=== PATIENT | male | born 1950 | race Caucasian/White ===

== ENCOUNTER → 2024-02-11 10:46 | Outpatient (REF) | payer MEDICARE, OTHER, SELFPAY | LOC: RAD 10:46 | PROVIDERS: ATTENDING PHYSICIAN Family Medicine; FAMILY PHYSICIAN Family Medicine | DX: S29.9XXA Unspecified injury of thorax, initial encounter (principal) | CPT/HCPCS: 71101 ==

== ENCOUNTER → 2024-05-21 14:03 | Outpatient (REF) | payer MEDICARE, OTHER, SELFPAY ==
[2024-05-21 14:51] LABS: Urine Albumin Negative (Neg - Trace); Urine Bilirubin Negative (Negative); Urine Character Clear (Clear); Urine Color Yellow; Urine Glucose Negative (Negative); Urine Ketone Negative (Negative); Urine Leukocyte Negative (Negative); Urine Nitrite Negative (Negative); Urine Occult Blood 4+ (Negative); Urine Specific Gravity 1.025 (<1.030); Urine Urobilinogen Negative (Neg - 1+)
[2024-05-21 15:00] LABS: Urine Bacteria Few (Negative); Urine Calcium Oxalate Crystals Present; Urine Red Blood Cell 16-20 /HPF (0-2); Urine White Cell 0-2 /HPF (0-5)
== END ==
LOC: REG 14:03
PROVIDERS: ATTENDING PHYSICIAN Urology; FAMILY PHYSICIAN Family Medicine
DX: N39.0 Urinary tract infection, site not specified (principal)
CPT/HCPCS: 81003; 81015; 87086

== ENCOUNTER 2025-02-05 07:21 | Inpatient (IN) | payer MEDICARE, OTHER, SELFPAY ==
[2025-02-04 22:13] VITALS: BP 124/70
[2025-02-04 23:36] VITALS: BMI 29.4
[2025-02-04 23:57] LABS: Urine Character Clear (Clear)
--- NOTE | 2025-02-04 23:59 | ED.GENMED ---
History of Present Illness
General
Chief Complaint: Skin Problem
Source: patient
Exam Limitations: none
Time Seen by Provider: 02/04/25 23:46
Nursing documentation reviewed up to this point in time: agreed with
History of Present Illness
History of Present Illness:
74-year-old male with a past medical history of prostate cancer status post total prostatectomy, hypertension, hyperlipidemia, who presents to the ER today with concerns of dark-colored urine as well as itching to his back and forearms. Patient
reports that he woke up today and that around 1 PM after lunchtime, he started to notice that his back, arms, and part of his chest felt itchy. He denies any rash to the area. He called his primary care provider who told him to take Benadryl which
did significantly help the symptoms. Patient denies any exposure to new allergens, any recent new medications, any swelling of the lips or tongue, any difficulty swallowing, and difficulty breathing, any new body washes, ointments, any new
detergents use for close. Patient then reported that at around 7 PM, he noticed that his urine was darker in color. This is never happened to patient before. Patient denies any history of fevers, any history of abdominal pain or muscle aches.
Patient reports that he is feeling well. He denies history of kidney disease, he denies any history of nausea or vomiting.
Past History
Past History
ED Past Medical History: CVA, HTN and Hypercholesterolemia
ED Past Surgical History: Other (Hernia repair)
Social History
Tobacco: Non-smoker
Alcohol: None
Drug: None
Living: with family
Employment: Retired
Family History
Family History: Negative Diabetes
Review of Systems
Review of Systems
All Other Systems: ROS reviewed and negative except as documented in HPI and ROS
Phy Exam
Physical Exam
Physical Exam:
General: Patient is well appearing and in no acute distress; non-toxic
Skin: Warm and dry, no rashes or lesions. Small area of scattered linear excoriations noted to the back
Head: Normocephalic, atraumatic
Eyes: Sclera non-icteric. EOMs intact.
Cardiac: Regular rate and rhythm, no murmurs
Peripheral Vascular: No lower extremity swelling or edema
Pulm: Normal respiratory effort, no wheezes, rales, rhonchi
Abdomen: No abdominal tenderness to palpation, abdomen soft
Neuro: CN II-XII intact, no focal neurologic deficits.
Psychiatric: Appropriate mood and affect.
Course
Orders/Labs/Results
Orders:
Orders
02/04/25 23:42
Urine Microscopic Reflex Cult Urgent
Urine Reflex Culture from [facility] [Urinalysis Reflex To Culture] Urgent
Date Specimen was Collected: 02/04/25
Time Specimen was Collected: 23:41
Urine Culture Urgent
ADRIAN Source: U
Specimen Description:
Date Specimen was Collected: 02/04/25
Time Specimen was Collected: 23:41
02/04/25 23:57
CPK [Creatine Phosphokinase] Urgent
Complete Blood Count/With Diff Urgent
Comprehensive Metabolic Panel Urgent
02/04/25 23:59
Famotidine [Pepcid] 20 mg PO NOW STA
02/05/25 00:06
Lipase Urgent
Comment: ADD ON
02/05/25 01:02
US Abdomen Limited Urgent
Comment:
Reason For Exam: elevated total bilirubin, lfts
02/05/25 01:03
0.9% Sodium Chloride 500 ml [Nss] 500 ml IV BOLUS
02/05/25 03:03
Add On- LAB Urgent
Tests Added?: lipase
CT Abd/pelvis W Iv Cont Urgent
Comment:
Reason For Exam: transaminitis, transient nausea
02/05/25 03:04
0.9% Sodium Chloride 500 ml [Nss] 500 ml IV BOLUS
HydrOXYZINE [Atarax] 25 mg PO NOW STA
Abnormal Lab Results
02/04/25 02/05/25
23:42 00:06
RBC 4.27 L 10^6/uL
(4.70-6.10)
Hgb 12.7 L g/dL
(13.0-18.0)
Hct 38.8 L %
(39.0-52.0)
MCHC 32.7 L g/dL
(33.0-37.0)
MPV 11.1 H fL
(7.4-10.4)
Absolute Lymphs (auto) 0.5 L 10^3/uL
(1.2-3.4)
Neutrophils % 80.8 H %
(42.2-75.2)
Lymphocytes % 8.6 L %
(20.5-51.1)
BUN 26 H mg/dl
(9-20)
Creatinine 1.4 H mg/dL
(0.7-1.3)
Glucose 120 H mg/dl
(70-99)
Total Bilirubin 3.9 H mg/dl
(0.2-1.3)
AST 464 H U/L
(17-59)
ALT 790 H* U/L
(0-50)
Alkaline Phosphatase 223 H U/L
(38-126)
Creatine Kinase 320 H U/L
(55-170)
Urine Urobilinogen 3+ A
(Neg - 1+)
Leukocyte Esterase Rfl 1+ A
(Negative)
Urine Bacteria (Reflex) Few A
(Negative)
Urine Albumin (Reflex) 2+ A
(Neg - Trace)
02/05/25 00:06
02/05/25 00:06
Vital Signs
Initial and Last Documented VS:
Initial Vital Signs
Temp Pulse Resp BP Pulse Ox
98.7 F 96 20 124/70 96
02/04/25 22:13 02/04/25 22:13 02/04/25 22:13 02/04/25 22:13 02/04/25 22:13
Last Documented Vital Signs
Temp Pulse Resp BP Pulse Ox
98.7 F 94 20 123/86 98
02/04/25 22:13 02/05/25 06:00 02/05/25 06:00 02/05/25 06:00 02/05/25 06:00
MDM/Problems Addressed
Differential Diagnosis Includes:
ddx include dehydration, urinary tract infection, allergic reaction, hematuria, hemolysis, rhabdomyolysis, biliary disease
MDM/Problems Addressed:
74-year-old male with a past medical history of prostate cancer status post total prostatectomy, hypertension, hyperlipidemia, who presents to the ER today with concerns of dark-colored urine as well as itching to his back and forearms. Patient
reports that he woke up today and that around 1 PM after lunchtime, he started to notice that his back, arms, and part of his chest felt itchy. The tea-colored urine started this evening. Labs reviewed, patient mildly anemic at baseline. Elevated
BUN to creatinine ratio noted with ETHAN, patient given IV fluids. Total bilirubin elevated at 3.4, no history of this prior. Patient also noted to have transaminitis with AST of 464 and ALT of 790. His alk phos was also elevated. Urinalysis
reviewed, 3+ urobilinogen noted. His lipase is normal.
Patient was sent for ultrasound which showed no intra-abdominal pathology no signs of biliary obstruction. We then sent patient for CAT scan which showed also no acute findings. Patient will require admission for further workup and GI consult.
Case reviewed with ED attending.
Chronic conditions affecting care:
HTN, prostate cancer in remission
*Pulse Oximetry
SaO2: 96
Patient hypoxic: no
*Critical Care Note
Total Time (30-74mins, 75-104mins- exclusive of procedures): Not Applicable
Data Reviewed
Review of Other/Old Records Reveals: Records (P patient had prostate removed in 10/12/2021) and Discharge Summary (Reviewed discharge summary from 02/13/2020 patient seen for pyelonephritis with bacteremia)
Source: patient and records
ED Attending Note
-
Portions of this chart may have been created with voice recognition software.� Occasional wrong word or��sound alike� substitutions may have occurred due to the inherent limitations of voice recognition software.
Discharge Plan
Departure
Patient Disposition: Admit
Date of Disposition: 02/05/25
Time of Disposition: 05:47
Admit to: Med/Surg
Presentation/result/management discussed w/ accepting MD/DO: Hospitalist
Patient with high blood pressure during this ER visit?: No
Condition: Good
Discharge Problem:
Abnormal transaminases, Cholestatic pruritus
Prescriptions:
No Action
fluticasone propionate 1 SPRAY spray,suspension
2 spray intranasal DAILY
bupropion HCl 300 MG tablet extended release 24 hr
300 mg PO DAILY
magnesium oxide 500 MG capsule
500 mg PO DAILY
riboflavin (vitamin B2) [Vitamin B-2] 100 MG tablet
100 mg PO DAILY
lisinopril 5 MG tablet
5 mg PO DAILY
loratadine 10 MG tablet
10 mg PO DAILY
multivitamin with folic acid [Tab-A-Mark Anthony] 1 TABLET tablet
1 tab PO DAILY
aspirin 81 MG tablet,delayed release (DR/EC)
81 mg PO QPM
calcium carbonate 600 MG tablet
600 mg PO DAILY
ascorbic acid (vitamin C) [Vitamin C] 500 MG tablet
500 mg PO DAILY
polyethylene glycol 3350 17 GRAMS powder in packet
17 grams PO DAILY@1200
cyanocobalamin (vitamin B-12) 1,000 MCG tablet
1,000 mcg PO DAILY@1200
tamsulosin 0.4 MG capsule
0.4 mg PO DAILY
imipramine HCl 25 MG tablet
75 mg PO QPM
atorvastatin 40 MG tablet
40 mg PO QPM
sucralfate 1 GRAM tablet
1 g PO ACHS
famotidine [Pepcid] 40 MG tablet
40 mg PO DAILY
amlodipine 5 MG tablet
5 mg PO DAILY
acetaminophen 325 MG tablet
650 mg PO Q4HPRN PRN (Reason: mild pain) 0RF
oxycodone-acetaminophen 5 MG/325 MG tablet
1 tab PO Q4HPRN PRN (Reason: severe pain) Qty: 5 0RF
ferrous sulfate [FeroSul] 325 MG tablet
325 mg PO HS
Referrals:
Chris Weston DC [Family Provider, Physical Medicine / Rehab]
Interventions
Interventions:
*Risk Screen - Suicide Last Done: 02/04/25 22:13
*General Assessment Last Done: 02/04/25 23:36
*Neglect/Abuse Screening Last Done: 02/04/25 22:13
*ED- Fall Risk Assessment Last Done: 02/04/25 23:36
*ED COVID-19 Vaccine History Last Done: 02/04/25 23:36
ED-Male Genitourinary Assessment Last Done: 02/04/25 23:36
ED-Skin Assessment Last Done: 02/04/25 23:36
Discharge Date and Time
Print Language: SUDANESE
[2025-02-05] MEDS: PEPCID 20 MG PO (00:09)
[2025-02-05 00:14] LABS: Urine Red Blood Cell None Seen /HPF (0-2)
[2025-02-05 00:44] LABS: AST (SGOT) 464 U/L (17-59); Albumin 4.0 g/dl (3.5-5.0); Alkaline Phosphatase 223 U/L (38-126); Blood Urea Nitrogen 26 mg/dl (9-20); Calcium 9.1 mg/dl (8.4-10.2); Carbon Dioxide 28 mmol/L (22-30); Chloride 105 mmol/L (98-107); Estimated Creatinine Clearance 46 ml/min; Glucose 120 mg/dl (70-99); Potassium 3.8 mmol/L (3.5-5.1); Sodium 141 mmol/L (135-145); Total Protein 6.7 g/dl (6.3-8.2); eGFR 52.09
[2025-02-05 01:01] LABS: ALT (SGPT) 790 U/L (0-50)
[2025-02-05] MEDS: NSS 500 IV ×2 (01:11→03:29)
[2025-02-05 01:13] VITALS: BP 113/75
[2025-02-05 01:54] LABS: Hematocrit 38.8 % (39.0-52.0); Hemoglobin 12.7 g/dL (13.0-18.0); Mean Corp Hgb Conc. 32.7 g/dL (33.0-37.0); Mean Corpuscular Volume 90.9 fL (80.0-94.0); Nucleated Red Blood Cells % 0 % (-); Platelet Count 142 10^3/uL (130-400); Red Cell Dist. Width 13.7 % (11.5-14.5)
[2025-02-05] MEDS: ATARAX 25 MG PO (03:28)
[2025-02-05 03:35] LABS: Lipase 75 U/L (23-300)
[2025-02-05 06:00] VITALS: BP 123/86
--- NOTE | 2025-02-05 06:53 | HPS.HSE ---
Family Physician
-
Family Physician: Chris Weston DC
Chief Complaint
-
Itching, Dark Urine
History of Present Illness
Patient is a 74y M with PMH significant for hypertension, anxiety / depression and prostate cancer s/p treatment who presents to ED complaining of itching and dark urine. Patient states that his symptoms began yesterday around midday. He had
mild itching of the trunk that progressed throughout the day to become much more intense. Arms / legs / face are spared. He appreciates no skin lesions or rash. Patient denies any recent outdoor exposures, new medications, unusual food
ingestions, etc. No recent travel.
Patient also appreciated that his urine appeared very dark yesterday - though that has started to clear. No dysuria or flank pain.
No abdominal pain, N/V/D or other focal complaints.
Patient denies any prior h/o similar symptoms.
Medical History
Past Medical History
Past Medical History: Reports Other
Additional Past Medical History:
Hypertension
Anxiety / Depression
Prostate Cancer
Multiple Prior TIAs
Past Surgical History: Reports Other
Additional Past Surgical History:
Prostatectomy
T&A
Bilateral Inguinal Herniorrhaphies
Social History
Tobacco: Non-smoker
Alcohol: None
Drug: None
Family History
Family History: Not pertinent
Allergies / Home Medications
Allergies reflects when Allergies were last updated in [employer].
Home Medications with original date entered in [employer]
Allergy/Medication List:
Allergies
Allergy/AdvReac Type Severity Reaction Status Date / Time
No Known Drug Allergies Allergy N/A Verified 02/04/25 22:17
Home Medications
bupropion HCl 300 mg 24 hr tablet, extended release 300 mg PO DAILY Mental Health/Anxiety 09/04/17
fluticasone propionate 50 mcg/actuation nasal spray,suspension 2 spray intranasal DAILY Lung/breathing issues 09/04/17
magnesium oxide 500 mg capsule 500 mg PO DAILY Supplement 09/05/17
lisinopril 5 mg tablet 5 mg PO DAILY Blood pressure 09/08/17
loratadine 10 mg tablet 10 mg PO DAILY Allergies 09/08/17
multivitamin with folic acid 400 mcg tablet (Tab-A-Mark Anthony) 1 tab PO DAILY Supplement 09/08/17
ascorbic acid (vitamin C) 500 mg tablet (Vitamin C) 500 mg PO DAILY Supplement 02/10/20
aspirin 81 mg tablet,delayed release 81 mg PO QPM Blood clot prevention/tx 02/10/20
calcium carbonate 600 mg PO DAILY Supplement 02/10/20
cyanocobalamin (vitamin B-12) 1,000 mcg tablet 1,000 mcg PO DAILY@1200 Supplement 09/10/20
imipramine HCl 25 mg tablet 75 mg PO QPM Sleep 09/10/20
atorvastatin 40 mg tablet 40 mg PO QPM High cholesterol 09/22/21
amlodipine 5 mg tablet 5 mg PO DAILY Blood pressure 10/08/21
escitalopram oxalate 5 mg tablet 5 mg PO DAILY 02/05/25
trospium 20 mg tablet 20 mg PO QPM 02/05/25
Review of Systems
-
History Source: Patient
A 12 point ROS was completed and negative except as noted: Yes
Constitutional: Denies Fever or Chills
Respiratory: Denies Cough or Trouble Breathing
Cardiac: Denies Chest Pain or Palpitations
Abdomen/GI: Denies Abdominal Pain, Nausea, Vomiting or Diarrhea
: Reports Dark Urine; Denies Dysuria, Frequency or Flank Pain
Musculoskeletal: Denies Joint Pain or Edema
Skin: Reports Itching; Denies Rash
Neurological: Denies Dizzy or Headache
Psych: Denies Depression or Anxiety
Physical Exam
Vital Signs
Vital Signs
Temp Pulse Resp BP Pulse Ox
98.7 F 94 20 123/86 98
02/04/25 22:13 02/05/25 06:00 02/05/25 06:00 02/05/25 06:00 02/05/25 06:00
Physical Exam
General: Other (74y M in no acute distress.)
HEENT: Moist mucous membranes and PERRLA
Respiratory: Clear; No Wheezes, Rales or Rhonchi
Cardiac: S1/S2 and Regular Rhythm; No Murmur
GI: Soft, Non Tender, Non Distended and Normal Bowel Sounds
Musculoskeletal: No Clubbing, No Cyanosis and No Edema
Skin: No Rash, Jaundice or Lesions
Neuro: AO x 3
Laboratory Results
-
02/05/25 00:06
02/05/25 00:06
Laboratory Results
Total Bilirubin 3.9 mg/dl (0.2-1.3) H 02/05/25 00:06
AST 464 U/L (17-59) H 02/05/25 00:06
ALT 790 U/L (0-50) H* 02/05/25 00:06
Alkaline Phosphatase 223 U/L (38-126) H 02/05/25 00:06
Lipase 75 U/L (23-300) 02/05/25 00:06
Impression/Plan
-
A/P: Patient is a 74y M with PMH significant for hypertension and prostate cancer s/p treatment who presents to ED complaining of itching and dark urine.
Hyperbilirubinemia / Abnormal LFTs
Pruritis
Bilirubinuria
- Admit for further evaluation and treatment.
- No clear etiology for symptoms / changes.
- Patient had outpatient labs (in external med summary) on 02/03 which were completely normal.
- Now mild anemia and abnormal LFTs.
- CT and US done in the ED were unremarkable.
- Check serologies for hepatitis, etc.
- GI evaluation for additional recommendations.
ETHAN
- SCr = 1.4 compared to recent outpatient value of 1.08.
- IVFs for now.
- Hold lisinopril acutely.
- Follow for improvement.
Mild Normocytic Anemia
- Hgb = 12.7 compared to 14.9 two days ago.
- Check for antibodies and follow for any evident bleeding or changes in H&H.
Benign Hypertension
- Stable. Continue amlodipine with holding parameters.
Anxiety / Depression
- Stable. Continue current psychotropic med regimen.
History of Prostate Cancer
DVT Prophylaxis: SCDs
Code Status: Full
[2025-02-05 07:04] VITALS: BP 138/96
[2025-02-05] MEDS: BENADRYL 25 MG PO (07:18)
[2025-02-05 08:32] VITALS: BP 140/82
[2025-02-05 08:33] VITALS: BMI 29.0
[2025-02-05] MEDS: WELLBUTRIN XL (24 hour extended release) 300 MG PO (08:52)
[2025-02-05] MEDS: LEXAPRO 5 MG PO (08:53)
[2025-02-05] MEDS: NORVASC 5 MG PO (08:53)
[2025-02-05] MEDS: NSS 1000 IV ×2 (08:53→20:10)
--- NOTE | 2025-02-05 09:33 | CON.GI ---
Addendum entered and electronically signed by CHARY Penn 02/05/25 17:28:
MRI abdomen
1. Diffuse periportal signal abnormality throughout the liver and diffuse heterogeneous enhancement throughout the liver on the arterial phase of imaging without evidence for abnormal biliary dilatation. Diagnostic possibilities are (1) PRIMARY
BILIARY CHOLANGITIS (most likely), (2) infectious cholangitis, or (3) sclerosing cholangitis.
2. Mild kelli hepatis and portacaval lymphadenopathy.
3. Severe gallbladder distention.
4. Moderate diffuse pancreatic parenchymal atrophy.
5. 5.3 mm pancreatic cyst.
6. Mild chronic bilateral renal disease.
7. Large amount of fecal material in the proximal colon.
8. Moderate multilevel lumbar discogenic degenerative disease.
reviewed MRI with patient and family will review with Dr. Gómez if any role for EUS
may need hepatology OP eval
Addendum entered and electronically signed by Sharita Gonsalez DO 02/05/25 10:27:
The patient was seen and examined by me independently in collaboration with the nurse practitioner.
Past medical history/social history/medications/allergies/family history reviewed.
Lab data and imaging data reviewed.
Vu Schneider is a 74 y.o. male with pmhx HTN, HLD, anxiety/depression, prostate ca who presents with 1 day of pruritis and dark urine found to have elevated liver enzymes and acute kidney injury. Preliminary reads on abdominal US and CT scan were
unremarkable, final reads pending. He reports 3 episodes of loose dark brown stool about 3 days ago with associated lower abdominal pain, which has since resolved, otherwise, he denies any GI symptoms, fever/chills. Reports similar episode about 3
months ago. He assumed he had norovirus, but was never evaluated for his symptoms. He denies new medications/dose changes in current medications, recent antibitoics, travel, sick contacts, rashes, history of liver disease/issues or family history of
liver disease. Denies excessive use of NSAIDs or tylenol. No etoh use. [place] known [place] He reports the itching has improved and almost resolved. Normal labs on 02/03.
Labs: Hgb 12.7, MCV 90.0, Plt 142, BUN 26, Cr. 1.4, Tbili 3.9, AST 464, ALT 790, Alk phos 223, CK 320, total protein 6.7, Albumin 4.0, Lipase 75
Labs 10/09/21: Hgb 12.7, MCV 91.2, Plt 167
#Acute Hepatocellular Injury--DDx infectious vs. autoimmune vs. DILI (no obvious culprits) vs. obstructive biliary pathology vs. infiltrative
-R factor 10.6
-Preliminary reads on CT/Abdominal US, moderate stool burden noted; need to verify if dopplers ordered on US to assess vasculature
-hepatitis panel pending, check CMV, EBV, peripheral smear
-f/u Dbili
-check acetaminophen levels, salicylate levels, UDS, ASMA, AMA, A1AT, ceruloplasmin, immunoglobulins, coags
-MRI/MRCP
-no evidence of fulminant liver failure
-trend LFTs
#thrombocytopenia
-Mild thrombocytopenia, platelets 142; upon review of labs, low normal in 2021 with plt of 167
-will continue to monitor for signs of DIC or liver failure, none at the moment, this could be baseline/normal for him
-workup as above
Original Note:
Consultation
-
Date/Time Consultation Requested: 02/05/25654
Date/Time Consultation Performed: 02/05/25929
Requesting Provider: Zackary Arroyo DO
Performing Provider: CHARY Méndez, Jeannine Gonsalez DO
Reason for Consultation: jaundice
Medical History
Chief Complaint / HPI
Chief Complaint: itchiness
History of Present Illness:
Pt is a 74yo with hx prostate CA with prior prostatectomy, colon polyps, TIA, HTN, hyperlipidemia, depression, insomnia with prior GI eval for dyspepsia and constipation several years ago with stable EGD and colonoscopy in past. He now presents
with onset of itchiness since day prior to admission. In review with patient he was noted with 2 episodes of abdominal pain with loose stools about 3 months ago then 2 weeks ago. On admission he is noted with dark urine with bili 3.9, AST 464, ALT
790, alk phos 223 with CK 320, creat 1.4, hbg 12.7 with normal WBC, platelets and albumin.
In review with patient he denies any new medication, change in medication, recent antibiotics, travel, tick bites, rashes, or personal or family history of liver problems in past. No NSAID or anticoagulation use. He otherwise denies wt loss,
decreased appetite, dysphagia, GERD, nausea, vomiting, constipation, or rectal bleeding.
ER preliminary:
02/05 CT A/p IV contrast no acute pathology, no biliary obstruction or pancreatitis, no gallstones, gallbladder is distended without inflammation normal liver
02/05 US abdomen no acute findings, no stones, sludge, no duct dilatation, no GBWT or pericholecystitis fluid
Past Medical History
Past Medical History: Cancer (prostate CA with prior treatment ), CVA (TIAs), HTN, Hypercholesterolemia, Psychiatric (anxiety/depression) and Other (insomnia, colon polyps, )
Past Surgical History: Tonsilectomy and Other (prostectomy, inguinal hernia repair left side 2018 and right side 1993)
Social History
Tobacco: Non-Smoker
Alcohol: None
Drug: None
Personal:
Living: With Family
Employment: Retired
Family History
Family History: Other (son with crohns no family hx liver problems or cirrhosis )
Allergies / Home Medications
Allergy/AdvReac Type Severity Reaction Status Date / Time
No Known Drug Allergies Allergy N/A Verified 02/04/25 22:17
�Medication �Instructions �Recorded
bupropion HCl 300 mg 24 hr tablet, 300 mg PO DAILY Mental 09/04/17
extended release Health/Anxiety
fluticasone propionate 50 2 spray intranasal DAILY 09/04/17
mcg/actuation nasal Lung/breathing issues
spray,suspension
magnesium oxide 500 mg capsule 500 mg PO DAILY Supplement 09/05/17
lisinopril 5 mg tablet 5 mg PO DAILY Blood pressure 09/08/17
loratadine 10 mg tablet 10 mg PO DAILY Allergies 09/08/17
multivitamin with folic acid 400 1 tab PO DAILY Supplement 09/08/17
mcg tablet (Tab-A-Mark Anthony)
ascorbic acid (vitamin C) 500 mg 500 mg PO DAILY Supplement 02/10/20
tablet (Vitamin C)
aspirin 81 mg tablet,delayed 81 mg PO QPM Blood clot 02/10/20
release prevention/tx
calcium carbonate 600 mg PO DAILY Supplement 02/10/20
cyanocobalamin (vitamin B-12) 1,000 mcg PO DAILY@1200 Supplement 09/10/20
1,000 mcg tablet
imipramine HCl 25 mg tablet 75 mg PO QPM Sleep 09/10/20
atorvastatin 40 mg tablet 40 mg PO QPM High cholesterol 09/22/21
amlodipine 5 mg tablet 5 mg PO DAILY Blood pressure 10/08/21
escitalopram oxalate 5 mg tablet 5 mg PO DAILY 02/05/25
trospium 20 mg tablet 20 mg PO QPM 02/05/25
Review of Systems
-
History Source: Patient
Constitutional: Reports No Symptoms
EENT: Reports No Symptoms
Respiratory: Reports No Symptoms
Abdomen/GI: Reports Abdominal Pain (2 episode 3 months ago and 2 weeks ago ) and Diarrhea
: Reports Dark Urine
Musculoskeletal: Reports No Symptoms
Skin: Reports No Symptoms
Neurological: Reports No Symptoms
Endocrine: Reports No Symptoms
Hematologic/Lymphatic: Reports No Symptoms
Vital Signs
Temp Pulse Resp BP Pulse Ox
98.6 F 95 20 140/82 95
02/05/25 08:32 02/05/25 08:53 02/05/25 08:32 02/05/25 08:53 02/05/25 08:32
Physical Exam
Exam
General: Well Developed, Well Nourished and No Apparent Distress
HEENT: Other (jaundice)
Respiratory: Clear
Cardiac: Regular Rhythm
GI: Soft, Non Tender and Non Distended
Musculoskeletal: No Clubbing and No Cyanosis
Skin: Warm and Dry
Neuro: Awake, Alert and AO x 3
Psych: Calm
Results
WBC 5.9 10^3/uL (4.8-10.8) 02/05/25 00:06
Hgb 12.7 g/dL (13.0-18.0) L 02/05/25 00:06
Hct 38.8 % (39.0-52.0) L 02/05/25 00:06
MCV 90.9 fL (80.0-94.0) 02/05/25 00:06
Plt Count 142 10^3/uL (130-400) 02/05/25 00:06
Absolute Neuts (auto) 4.8 10^3/uL (1.4-6.5) 02/05/25 00:06
Sodium 141 mmol/L (135-145) 02/05/25 00:06
Potassium 3.8 mmol/L (3.5-5.1) 02/05/25 00:06
Chloride 105 mmol/L (98-107) 02/05/25 00:06
Carbon Dioxide 28 mmol/L (22-30) 02/05/25 00:06
BUN 26 mg/dl (9-20) H 02/05/25 00:06
Creatinine 1.4 mg/dL (0.7-1.3) H 02/05/25 00:06
Calcium 9.1 mg/dl (8.4-10.2) 02/05/25 00:06
Total Bilirubin 3.9 mg/dl (0.2-1.3) H 02/05/25 00:06
AST 464 U/L (17-59) H 02/05/25 00:06
ALT 790 U/L (0-50) H* 09/09/25 00:06
Alkaline Phosphatase 223 U/L (38-126) H 02/05/25 00:06
Lipase 75 U/L (23-300) 02/05/25 00:06
Diagnostic Image Results:
ER preliminary:
02/05 CT A/p IV contrast no acute pathology, no biliary obstruction or pancreatitis, no gallstones, gallbladder is distended without inflammation normal liver
02/05 US abdomen no acute findings, no stones, sludge, no duct dilatation, no GBWT or pericholecystitis fluid
Prior GI Procedures:
EGD: 12/2020 mark - - Normal esophagus. Biopsied.
- Z-line irregular, 40 cm from the incisors. This was
biopsied for evaluation to rule out Montes's
Esophagus.
- Mild antral gastritis. Biopsies were taken for
Helicobacter pylori testing.
- Moderate gastritis of body. Biopsied.
- Bilious gastric fluid. Fluid aspiration performed.
- Normal examined duodenum. Biopsies for histology
were taken for evaluation of celiac disease.
bx neg H pylori, neg metaplasia
Colonoscopy: 12/2020- mark 4 mm polyp rectum normal colon mucosa bx TA, random bx neg colitis
Assessment / Plan
-
Pt is a 74yo with hx prostate CA with prior prostatectomy, colon polyps, TIA, HTN, hyperlipidemia, depression, insomnia with prior GI eval for dyspepsia and constipation several years ago with stable EGD and colonoscopy in past. He now presents
with onset of itchiness since day prior to admission. In review with patient he was noted with 2 episodes of abdominal pain with loose stools about 3 months ago then 2 weeks ago. On admission he is noted with dark urine with bili 3.9, AST 464, ALT
790, alk phos 223 with CK 320, creat 1.4, hbg 12.7 with normal WBC, platelets and albumin. In review with patient he denies any new medication, change in medication, recent antibiotics, travel, tick bites, rashes, or personal or family history of
liver problems in past. No NSAID or anticoagulation use. He otherwise denies wt loss, decreased appetite, dysphagia, GERD, nausea, vomiting, constipation, or rectal bleeding. Denies ETOH use. No excessive Tylenol use.
ER preliminary:
02/05 CT A/p IV contrast no acute pathology, no biliary obstruction or pancreatitis, no gallstones, gallbladder is distended without inflammation normal liver
02/05 US abdomen no acute findings, no stones, sludge, no duct dilatation, no GBWT or pericholecystitis fluid
-pruritus
- elevated LFT's
-recent GI illness with abdominal pain and diarrhea 3 months ago then 2 weeks ago
-mild elevated CK
other med problems:
-prostate CA with prior prostatectomy
-colon polyps
-TIA
-HTN
-hyperlipidemia
-depression
-insomnia
PLAN:
Etiology of symptoms related to biliary etiology, passed stone, viral, hepatitis, tic illness vs other
plan for MRI to eval for underlying CBD stone, mass vs other
hepatitis panel pending
add D bili
will add INR, CLARENCE, AMA, ASMA, ceruloplasmin, iron studies, AIAT , CVM, and EBV, Babesia smear
trend labs
hold statin
avoid hepatotoxic medication
reviewed with Dr. Bang
-
-
Thank you for consultation and allowing me to participate in the patient's care. Please call the manager functional GI physician during the after hours with any questions or concerns.
--- NOTE | 2025-02-05 10:25 | W.PN.UPDATE ---
Update Note
Progress Note Update
Patient admitted 6 AM today
at present, no abd pain, no nausea/vomiting
itching slowly improving per patient
GI evaluated; labs and MRI ordered
Assessment:
Hyperbilirubinemia/Abnormal LFTs
Pruritis
Bilirubinuria
- No clear etiology for symptoms/changes.
- Patient had outpatient labs (in external med summary) on 02/03 which were completely normal.
- Now mild anemia and abnormal LFTs.
- CT and US done in the ED were unremarkable; final reports pending
- MRI/MRCP pending
- Check serologies for hepatitis, etc. also other GI workup
- GI following
- avoid hepatotoxins
ETHAN
- SCr = 1.4 compared to recent outpatient value of 1.08.
- IVFs for now.
- Hold lisinopril acutely.
- Follow for improvement.
Mild Normocytic Anemia
- Hgb = 12.7 compared to 14.9 two days ago.
- Check for antibodies and follow for any evident bleeding or changes in H&H.
Benign Hypertension
- Stable. Continue amlodipine with holding parameters.
Anxiety/Depression
- Stable. Continue current psychotropic med regimen.
Hx of TIA
- statin/ASA
History of Prostate Cancer
DVT Prophylaxis: SCDs
Code Status: Full
--- NOTE | 2025-02-05 10:40 | CM ---
patient seen at bedside with
IA completed
Lives in 2 story home, 2 JOI, flight to bed/bath, powder room 1st floor
PLOF: independent, drives
DME: stefani Edgar
has had [facility] in past, denies Rehab
PCP: Milton Weston
Pharmacy: [facility]
Plan: home, no needs when stable
[2025-02-05 11:02] LABS: INR 1.04; PT 13.9 Sec (11.4-14.6)
[2025-02-05 13:10] LABS: Acetaminophen < 10 ug/ml (10-30); GGTP 594 U/L (15-73); Iron 48 ug/dl (49-181); Salicylate < 1.0 mg/dl (2.0-20.0)
[2025-02-05 13:19] LABS: Total Iron Binding Capacity 284 ug/dl (261-462)
[2025-02-05 15:10] LABS: Ferritin 115.0 ng/ml (17.9-464.0)
[2025-02-05 15:33] VITALS: BP 135/88
[2025-02-05 16:36] LABS: Hepatitis B Surface Antigen Negative (Negative)
[2025-02-05 16:53] LABS: Hepatitis C Antibody Negative (Negative)
[2025-02-05] MEDS: ASPIR LOW (ENTERIC COATED) 81 MG PO (17:19)
[2025-02-05 23:15] VITALS: BP 125/83
[2025-02-06 06:37] VITALS: BMI 28.6
[2025-02-06] MEDS: NSS 1000 IV (07:22)
[2025-02-06 07:30] VITALS: BP 138/88
[2025-02-06 07:58] LABS: INR 0.96; PT 13.3 Sec (11.4-14.6)
[2025-02-06] MEDS: LEXAPRO 5 MG PO (08:15)
[2025-02-06] MEDS: NORVASC 5 MG PO (08:16)
[2025-02-06] MEDS: WELLBUTRIN XL (24 hour extended release) 300 MG PO (08:16)
[2025-02-06 08:17] LABS: Hematocrit 37.5 % (39.0-52.0); Hemoglobin 13.0 g/dL (13.0-18.0); Mean Corp Hgb Conc. 34.7 g/dL (33.0-37.0); Mean Corpuscular Volume 88.2 fL (80.0-94.0); Platelet Count 147 10^3/uL (130-400); Red Cell Dist. Width 13.4 % (11.5-14.5)
--- NOTE | 2025-02-06 08:42 | W.PN.GI.CBS2 ---
Addendum entered and electronically signed by CHARY Penn 02/06/25 10:55:
sent text to [facility] liaison zay Garcia to see if any sooner appt with Dr. Quiroz for OP follow up
Addendum entered and electronically signed by CHARY Penn 02/06/25 09:45:
per Dr. Gómez will need MRI in 6 months and 2 years after to follow up on pancreatic cyst
Original Note:
Today's Communication / Plan
-
Etiology of symptoms related to biliary etiology possible PBC, PSC, passed stone, viral, hepatitis, tic illness vs other
imaging reviewed as above
I did review MRI with Dr. Gómez no role for EUS/ERCP but further review for panc cyst
await further liver serologies
await repeat LFT's-- hepatitis panel neg, GGT 594
parasite smear neg
hold statin
avoid hepatotoxic medication
cont low fat diet
overall awaiting AM labs, liver serology but may need OP hepatology follow up and eventual liver biopsy
pending labs will decide on GI standpoint and ability for discharge
work up for ? ureter mass per hospitalist team
Assessment / Plan
-
Pt is a 74yo with hx prostate CA with prior prostatectomy, colon polyps, TIA, HTN, hyperlipidemia, depression, insomnia with prior GI eval for dyspepsia and constipation several years ago with stable EGD and colonoscopy in past. He now presents
with onset of itchiness since day prior to admission. In review with patient he was noted with 2 episodes of abdominal pain with loose stools about 3 months ago then 2 weeks ago. On admission he is noted with dark urine with bili 3.9, AST 464, ALT
790, alk phos 223 with CK 320, creat 1.4, hbg 12.7 with normal WBC, platelets and albumin. In review with patient he denies any new medication, change in medication, recent antibiotics, travel, tick bites, rashes, or personal or family history of
liver problems in past. No NSAID or anticoagulation use. He otherwise denies wt loss, decreased appetite, dysphagia, GERD, nausea, vomiting, constipation, or rectal bleeding. Denies ETOH use. No excessive Tylenol use.
ER preliminary:
02/05 CT A/p IV contrast
Mild diffuse bladder wall thickening likely due to limited distention. Cystitis and bladder outlet obstruction not excluded.
Probable filling defect in the right ureter suggesting a mass. Peristalsis not completely excluded. Further evaluation recommended such as a retrograde pyelogram or ureteroscopy.
Large amount of fecal matter throughout the colon.
Bilateral too small to characterize hypodense renal lesions likely benign cysts.
02/05 US abdomen
The gallbladder appears normal. The wall measures 3 mm. No stones nor sludge are noted.
The common bile duct measures 4 mm.
There is no hydronephrosis of the right kidney.
02/05/25 MR Abdomen W/o & W Contrast
1. Diffuse periportal signal abnormality throughout the liver and diffuse heterogeneous enhancement throughout the liver on the arterial phase of imaging without evidence for abnormal biliary dilatation. Diagnostic possibilities are (1) PRIMARY
BILIARY CHOLANGITIS (most likely), (2) infectious cholangitis, or (3) sclerosing cholangitis.
2. Mild kelli hepatis and portacaval lymphadenopathy.
3. Severe gallbladder distention.
4. Moderate diffuse pancreatic parenchymal atrophy.
5. 5.3 mm pancreatic cyst.
6. Mild chronic bilateral renal disease.
7. Large amount of fecal material in the proximal colon.
8. Moderate multilevel lumbar discogenic degenerative disease.
-pruritus
- elevated LFT's with elevated D bili
-elevated GGT
-GB distention no pain or fever
- abnormal MRI with lymphadenopathy, GB distention without fever/pain, jansen atrophy panc cyst 5.3 mm and periportal signal abnormality
-recent GI illness with abdominal pain and diarrhea 3 months ago then 2 weeks ago
-mild elevated CK
-constipation-longstanding hx dyspepsia
-CT with abnormal ureter not seen on MRI
other med problems:
-prostate CA with prior prostatectomy
-colon polyps
-TIA
-HTN
-hyperlipidemia
-depression
-insomnia
PLAN:
Etiology of symptoms related to biliary etiology possible PBC, PSC, passed stone, viral, hepatitis, tic illness vs other
imaging reviewed as above
I did review MRI with Dr. Gómez no role for EUS/ERCP but further review for panc cyst
await further liver serologies
await repeat LFT's-- hepatitis panel neg, GGT 594
parasite smear neg
hold statin
avoid hepatotoxic medication
cont low fat diet
overall awaiting AM labs, liver serology but may need OP hepatology follow up and eventual liver biopsy
pending labs will decide on GI standpoint and ability for discharge
work up for ? ureter mass per hospitalist team
Subjective
Subjective
Date of Service: February 06, 2025
pt feeling better no abdominal pain, tolerated diet, no further itching
Objective
Data Reviewed
Laboratory Data:
Laboratory Results
02/06/25 06:59
Laboratory Results
PT 13.3 Sec (11.4-14.6) 02/06/25 06:59
INR 0.96 02/06/25 06:59
Total Bilirubin 3.9 mg/dl (0.2-1.3) H 02/05/25 00:06
AST 464 U/L (17-59) H 02/05/25 00:06
ALT 790 U/L (0-50) H* 02/05/25 00:06
Alkaline Phosphatase 223 U/L (38-126) H 02/05/25 00:06
Lipase 75 U/L (23-300) 02/05/25 00:06
Vital Signs and I&O:
Vital Signs
Temp Pulse Resp BP Pulse Ox
98.2 F 98 16 138/88 96
02/06/25 07:30 02/06/25 08:16 02/06/25 07:30 02/06/25 08:16 02/06/25 07:30
I&O
02/05/25 02/06/25 02/07/25
06:59 06:59 06:59
Intake Total 1679
Balance 1679
Physical Exam
Physical Exam
HEENT: Other (minimal jaundice )
Cardiology: Normal Sinus Rhythm
Pulmonary: Clear
GI: Soft, Non Distended and Non Tender
Extremities: No Edema
Neuro: Non Focal
[2025-02-06 08:54] LABS: ALT (SGPT) 489 U/L (0-50); AST (SGOT) 189 U/L (17-59); Albumin 3.9 g/dl (3.5-5.0); Alkaline Phosphatase 251 U/L (38-126); Blood Urea Nitrogen 10 mg/dl (9-20); Calcium 8.9 mg/dl (8.4-10.2); Carbon Dioxide 20 mmol/L (22-30); Chloride 110 mmol/L (98-107); Estimated Creatinine Clearance 93 ml/min; Glucose 108 mg/dl (70-99); Magnesium 1.9 mg/dl (1.6-2.3); Potassium 3.9 mmol/L (3.5-5.1); Sodium 138 mmol/L (135-145); Total Protein 6.5 g/dl (6.3-8.2); eGFR > 60.00
[2025-02-06] MEDS: MIRALAX 17 GRAMS PO (09:30)
--- NOTE | 2025-02-06 12:39 | W.PN.HOSP.TC ---
Today's Communication/Plan
-
dc home
Assessment / Plan
Assessment / Plan
Assessment:
Hyperbilirubinemia/Abnormal LFTs
Pruritis
Bilirubinuria
- No clear etiology for symptoms/changes.
- Patient had outpatient labs (in external med summary) on 02/03 which were completely normal.
- Now mild anemia and abnormal LFTs.
- CT and US done in the ED were unremarkable for acute billiary pathology
- MRI: Diffuse periportal signal abnormality throughout the liver and diffuse heterogeneous enhancement throughout the liver on the arterial phase of imaging without evidence for abnormal biliary dilatation. Diagnostic possibilities are (1) PRIMARY
BILIARY CHOLANGITIS (most likely), (2) infectious cholangitis, or (3) sclerosing cholangitis. Mild kelli hepatis and portacaval lymphadenopathy. Severe gallbladder distention. Moderate diffuse pancreatic parenchymal atrophy.
- pending serologies for hepatitis, etc. also other GI workup
- OP Hepatology follow up (Dr. Quiroz, [place]) for potential liver biopsy
ETHAN
- SCr = 1.4 compared to recent outpatient value of 1.08.
- improved with IVF
- Hold lisinopril acutely.
- Follow for improvement.
Mild Normocytic Anemia
- Hgb = 12.7 compared to 14.9 two days ago.
- Check for antibodies and follow for any evident bleeding or changes in H&H.
Benign Hypertension
- Stable. Continue amlodipine with holding parameters.
Anxiety/Depression
- Stable. Continue current psychotropic med regimen.
Hx of TIA
- statin/ASA
History of Prostate Cancer
CT with suggestion R ureteral mass
- not seen on MRI
- Notified Dr. Graham via TT for outpatient evaluation, ureteroscopy
DVT Prophylaxis: SCDs
Code Status: Full
More than 30 minutes spent in discharge including
Final examination of the patient
Summarizing hospital stay
Instructions for continuing care to all relevant caregivers
Preparation of discharge records, prescriptions, and referral forms
Total time spent (in minutes): 41
Anticipated Discharge: Today
Subjective/Interval History
-
Date of Service: February 06, 2025
resting comfortably, no complaints at present
Objective Data
-
Labs:
Laboratory Results
02/06/25
06:59
WBC 4.7 L
Hgb 13.0
Hct 37.5 L
Plt Count 147
PT 13.3
INR 0.96
Sodium 138
Potassium 3.9
Chloride 110 H
Carbon Dioxide 20 L
BUN 10
Creatinine 0.7
Glucose 108 H
Calcium 8.9
Total Bilirubin 1.9 H D
AST 189 H
ALT 489 H
Alkaline Phosphatase 251 H
Vital Signs:
Vital Signs
Temp Pulse Resp BP Pulse Ox
98.2 F 98 16 138/88 96
02/06/25 07:30 02/06/25 08:16 02/06/25 07:30 02/06/25 08:16 02/06/25 07:30
I&O
02/05/25 02/06/25 02/07/25
06:59 06:59 06:59
Intake Total 1680 / 1680
Balance 1680 / 1680
Physical Exam
-
General: No Apparent Distress
HEENT: Normocephalic
Respiratory: Negative Wheezes
Cardiac: Regular Rhythm and S1/S2
GI: Soft
Genito-urinary: No Costovertebral Tender
Neuro: AO x 3
Psych: Calm
Data Reviewed
-
Total Time Spent with Patient (in minutes): 42
Labs: Labs Reviewed by me
--- NOTE | 2025-02-06 12:56 | CM ---
Patient seen at bedside with
Discharge today
IMM explained & signed. In chart
PLAN: Home no needs
to transport
[2025-02-06 13:22] VITALS: BP 140/89
--- NOTE | 2025-02-06 14:18 | W.DS.TRANS ---
DC Summary - Adult Basic Education Manager
-
Discharge Instructions:
Discharge Diagnosis/Procedures elevated LFTs and MRI suggestive of primary
biliary cholangitis
Diet Low Fat
Activity As tolerated
Bathing Restrictions None
Blood Work repeat CMP in 1 week - script given
Others Tests also noted pancreatic cyst on imaging. Will
need repeat MRI in 6 months with local GI office
Instructions:
Stand-Alone Forms:
Changes to Home Medications: No
Discharge Medications:
DC Medications w/original date entered in [address]
bupropion HCl 300 mg 24 hr tablet, extended release 300 mg PO DAILY Mental Health/Anxiety 09/04/17
fluticasone propionate 50 mcg/actuation nasal spray,suspension 2 spray intranasal DAILY Lung/breathing issues 09/04/17
magnesium oxide 500 mg capsule 500 mg PO DAILY Supplement 09/05/17
lisinopril 5 mg tablet 5 mg PO DAILY Blood pressure 09/08/17
loratadine 10 mg tablet 10 mg PO DAILY Allergies 09/08/17
multivitamin with folic acid 400 mcg tablet (Tab-A-Mark Anthony) 1 tab PO DAILY Supplement 09/08/17
ascorbic acid (vitamin C) 500 mg tablet (Vitamin C) 500 mg PO DAILY Supplement 02/10/20
aspirin 81 mg tablet,delayed release 81 mg PO QPM Blood clot prevention/tx 02/10/20
calcium carbonate 600 mg PO DAILY Supplement 02/10/20
cyanocobalamin (vitamin B-12) 1,000 mcg tablet 1,000 mcg PO DAILY@1200 Supplement 09/10/20
imipramine HCl 25 mg tablet 75 mg PO QPM Sleep 09/10/20
amlodipine 5 mg tablet 5 mg PO DAILY Blood pressure 10/08/21
escitalopram oxalate 5 mg tablet 5 mg PO DAILY 02/05/25
trospium 20 mg tablet 20 mg PO QPM 02/05/25
Home Medication Changes
Pending Results: No
Total time spent discharging patient (in min): 42
[2025-02-07 02:06] LABS: ANA, IgG Reflex to HEp-2 None Detected (None Detected)
[2025-02-07 02:19] LABS: Mitochondrial M2 Ab, IgG 2.5 Units (0.0-24.9)
[2025-02-07 02:44] LABS: EBV-EA (D) Ab IgG <5.0 U/mL (<=8.9); EBV-NA IgG >600.0 U/mL (<=17.9); EBV-VCA IgG Antibodies 330.0 U/mL (<=17.9); EBV-VCA IgM Antibodies <10.0 U/mL (<=35.9)
== END 2025-02-06 14:23 | disposition home or self-care (01) | DRG 433 ==
LOC: 3 WEST ACU 07:21
PROVIDERS: Emergency Medicine; Nurse Practitioner Adult Health; Physician Assistant; ADMITTING PHYSICIAN Hospitalist; ATTENDING PHYSICIAN Internal Medicine; EMERGENCY PHYSICIAN Emergency Medicine; FAMILY PHYSICIAN Chiropractor; OTHER PHYSICIAN Internal Medicine
DX: K74.3 Primary biliary cirrhosis (principal); N17.9 Acute kidney failure, unspecified; L29.81 Cholestatic pruritus; K75.9 Inflammatory liver disease, unspecified; D64.9 Anemia, unspecified; I10 Essential (primary) hypertension; F32.A Depression, unspecified; F41.9 Anxiety disorder, unspecified; Z86.73 Personal history of transient ischemic attack (TIA), and cerebral infarction without residual deficits; Z85.46 Personal history of malignant neoplasm of prostate; Z79.82 Long term (current) use of aspirin; Z79.899 Other long term (current) drug therapy; Z86.0100 Personal history of colon polyps, unspecified; E78.00 Pure hypercholesterolemia, unspecified; Z90.79 Acquired absence of other genital organ(s)
CPT/HCPCS: 74177; 74183; 76705; 80053; 80143; 80179; 81003; 81015; 82103; 82248; 82390; 82550; 82728; 82784; 82977; 83540; 83550; 83690; 83735; 84100; 85025; 85027; 85610; 86015; 86038; 86381; 86645; 86663; 86664; 86665; 86705; 86706; 86709; 86803; 86850; 86900; 86901; 87015; 87086; 87207; 87340; 96360; 99285; A9575; Q9967

== ENCOUNTER → 2025-02-13 11:04 | Outpatient (REF) | payer MEDICARE, OTHER, SELFPAY ==
[2025-02-13 14:09] LABS: ALT (SGPT) 115 U/L (0-50); AST (SGOT) 36 U/L (17-59); Albumin 4.4 g/dl (3.5-5.0); Alkaline Phosphatase 199 U/L (38-126); Blood Urea Nitrogen 20 mg/dl (9-20); Calcium 9.1 mg/dl (8.4-10.2); Carbon Dioxide 24 mmol/L (22-30); Chloride 106 mmol/L (98-107); Glucose 89 mg/dl (70-99); Potassium 4.8 mmol/L (3.5-5.1); Sodium 138 mmol/L (135-145); Total Protein 7.4 g/dl (6.3-8.2); eGFR > 60.00
== END ==
LOC: REG 11:04
PROVIDERS: ATTENDING PHYSICIAN Internal Medicine; FAMILY PHYSICIAN Family Medicine
DX: L29.81 Cholestatic pruritus (principal)
CPT/HCPCS: 36415; 80053

== ENCOUNTER 2025-02-17 09:29 | Emergency (ER) | payer MEDICARE, OTHER, SELFPAY ==
[2025-02-17 09:33] VITALS: BP 123/83
[2025-02-17 10:04] VITALS: BMI 28.2
[2025-02-17 10:06] VITALS: BP 122/81
[2025-02-17 10:28] LABS: Hematocrit 41.1 % (39.0-52.0); Hemoglobin 13.8 g/dL (13.0-18.0); Mean Corp Hgb Conc. 33.6 g/dL (33.0-37.0); Mean Corpuscular Volume 88.6 fL (80.0-94.0); Platelet Count 300 10^3/uL (130-400); Red Cell Dist. Width 13.2 % (11.5-14.5)
[2025-02-17 10:41] LABS: INR 0.97; PT 13.2 Sec (11.4-14.6)
[2025-02-17 10:45] LABS: Blood Urea Nitrogen 23 mg/dl (9-20); Calcium 9.5 mg/dl (8.4-10.2); Carbon Dioxide 25 mmol/L (22-30); Chloride 106 mmol/L (98-107); Estimated Creatinine Clearance 72 ml/min; Glucose 93 mg/dl (70-99); Sodium 138 mmol/L (135-145); eGFR > 60.00
[2025-02-17 11:33] LABS: Blood Urea Nitrogen 24 mg/dl (9-20); Calcium 9.8 mg/dl (8.4-10.2); Carbon Dioxide 26 mmol/L (22-30); Chloride 105 mmol/L (98-107); Estimated Creatinine Clearance 72 ml/min; Glucose 88 mg/dl (70-99); Sodium 137 mmol/L (135-145); eGFR > 60.00
--- NOTE | 2025-02-17 11:36 | ED.GENMED ---
History of Present Illness
General
Chief Complaint: Abdominal Pain
Time Seen by Provider: 02/17/25 09:42
History of Present Illness
History of Present Illness:
74-year-old male presents to the emergency department for evaluation of lower abdominal discomfort and [place]/black loose stool for the past 4 days. Denies any nausea or vomiting. Pain is minimal at this time. Was recently admitted to this hospital
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 He is scheduled to follow-up within the next 2 weeks with [facility]. His transaminases did improve on outpatient labs within the past 5 days. Denies any dark urine or blanche
colored stool. He is not on anticoagulants. Does not take antiplatelets with the exception of baby aspirin nightly
Past History
Past History
ED Past Medical History: CVA, HTN and Hypercholesterolemia
ED Past Surgical History: Other (Hernia repair)
Social History
Tobacco: Non-smoker
Alcohol: None
Drug: None
Living: with family
Employment: Retired
Family History
Family History: Negative Diabetes
Review of Systems
Review of Systems
Allergies reviewed?: Yes
All Other Systems: ROS reviewed and negative except as documented in HPI and ROS
Phy Exam
Physical Exam
Physical Exam:
GEN: Well appearing, NAD, WDWN
HEENT: Oral mucosa moist, no scleral icterus
Cardiac: Regular rate
Lung: No respiratory distress, no tachypnea
Abdomen: Soft, grossly nontender to palpation, no rigidity
Rectal: Dark-colored stool in the rectal vault, heme-negative
MSK: No gross deformity or injuries
Skin: Good color, no pallor or jaundice, no rashes
Neuro: AO x3, moves all extremities freely
Psych: Calm, cooperative
Course
Orders/Labs/Results
Orders:
Orders
02/17/25 10:06
Basic Metabolic Panel Urgent
Complete Blood Count/No Diff Urgent
Prothrombin Time Urgent
02/17/25 11:10
Basic Metabolic Panel Urgent
02/17/25 12:06
Comprehensive Metabolic Panel Urgent
Abnormal Lab Results
02/17/25 02/17/25 02/17/25
10:06 11:10 12:06
RBC 4.64 L 10^6/uL
(4.70-6.10)
BUN 23 H mg/dl 24 H mg/dl 22 H mg/dl
(9-20) (9-20) (9-20)
ALT 54 H U/L
(0-50)
Alkaline Phosphatase 154 H U/L
(38-126)
02/17/25 10:06
02/17/25 12:06
Vital Signs
Initial and Last Documented VS:
Initial Vital Signs
Temp Pulse Resp BP Pulse Ox
98.5 F 90 16 123/83 95
02/17/25 09:33 02/17/25 09:33 02/17/25 09:33 02/17/25 09:33 02/17/25 09:33
Last Documented Vital Signs
Temp Pulse Resp BP Pulse Ox
98.5 F 90 16 122/81 95
02/17/25 09:33 02/17/25 09:33 02/17/25 09:33 02/17/25 10:06 02/17/25 11:37
MDM/Problems Addressed
MDM/Problems Addressed:
Patient's stool Hemoccult is negative, suspect dark stool may be due to Pepto-Bismol administration. Hemoglobin is uptrending and transaminases are downtrending compared to recent hospitalization which is reassuring. He has a benign abdominal exam
thus I see no indication for CT of the abdomen pelvis at this time. Continued outpatient GI follow-up recommended
*Pulse Oximetry
SaO2: 95
Oxygen Mode of Delivery: Room air
Patient hypoxic: no
*Critical Care Note
Total Time (30-74mins, 75-104mins- exclusive of procedures): Not Applicable
ED Attending Note
-
Portions of this chart may have been created with voice recognition software.� Occasional wrong word or��sound alike� substitutions may have occurred due to the inherent limitations of voice recognition software.
Discharge Plan
Departure
Patient Disposition: Home (Routine Discharge)
Date of Disposition: 02/17/25
Time of Disposition: 12:49
Patient with high blood pressure during this ER visit?: No
Discharge Problem:
Dark stools
Instructions: Abdominal Pain
Prescriptions:
No Action
fluticasone propionate 1 SPRAY spray,suspension
2 spray intranasal DAILY
bupropion HCl 300 MG tablet extended release 24 hr
300 mg PO DAILY
magnesium oxide 500 MG capsule
500 mg PO DAILY
lisinopril 5 MG tablet
5 mg PO DAILY
loratadine 10 MG tablet
10 mg PO DAILY
multivitamin with folic acid [Tab-A-[facility] [place]] 1 TABLET tablet
1 tab PO DAILY
aspirin 81 MG tablet,delayed release (DR/EC)
81 mg PO QPM
calcium carbonate 600 MG tablet
600 mg PO DAILY
ascorbic acid (vitamin C) [Vitamin C] 500 MG tablet
500 mg PO DAILY
cyanocobalamin (vitamin B-12) 1,000 MCG tablet
1,000 mcg PO DAILY@1200
imipramine HCl 25 MG tablet
75 mg PO QPM
amlodipine 5 MG tablet
5 mg PO DAILY
escitalopram oxalate 5 mg Tablet
5 mg PO DAILY
trospium 20 mg Tablet
20 mg PO QPM
Referrals:
Milton Kerr MD [Family Provider, Family Practice]
Activity Restrictions/Additional Instructions:
Your liver enzymes are improving still. Your blood counts are stable thus I have no concern for intestinal bleeding particular given the negative stool check. 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
Interventions
Interventions:
*Risk Screen - Suicide Last Done: 02/17/25 09:34
*General Assessment Last Done: 02/17/25 10:04
*Neglect/Abuse Screening Last Done: 02/17/25 09:34
*ED- Fall Risk Assessment Last Done: 02/17/25 09:45
*ED COVID-19 Vaccine History Last Done: 02/17/25 09:45
*Nursing Disposition Last Done: 02/17/25 12:57
PM-[facility]eb[facility]ew[facility] Assessment Last Done: 02/17/25 10:04
Discharge Date and Time
Discharge Date/Time: 02/17/25 12:59
Print Language: MONGOLIAN
[2025-02-17 12:37] LABS: ALT (SGPT) 54 U/L (0-50); AST (SGOT) 27 U/L (17-59); Albumin 4.2 g/dl (3.5-5.0); Alkaline Phosphatase 154 U/L (38-126); Blood Urea Nitrogen 22 mg/dl (9-20); Calcium 9.9 mg/dl (8.4-10.2); Carbon Dioxide 27 mmol/L (22-30); Chloride 105 mmol/L (98-107); Estimated Creatinine Clearance 72 ml/min; Glucose 96 mg/dl (70-99); Potassium 4.6 mmol/L (3.5-5.1); Sodium 138 mmol/L (135-145); Total Protein 7.2 g/dl (6.3-8.2); eGFR > 60.00
== END 2025-02-17 12:59 | disposition home or self-care (01) ==
LOC: EMR 09:29
PROVIDERS: Physician Assistant; EMERGENCY PHYSICIAN Emergency Medicine; FAMILY PHYSICIAN Family Medicine
DX: R19.5 Other fecal abnormalities (principal); I10 Essential (primary) hypertension; E78.00 Pure hypercholesterolemia, unspecified; Z79.82 Long term (current) use of aspirin; Z86.73 Personal history of transient ischemic attack (TIA), and cerebral infarction without residual deficits
CPT/HCPCS: 99283; 80048; 80053; 85027; 85610

== ENCOUNTER → 2025-03-04 12:31 | Outpatient (REF) | payer MEDICARE, OTHER, SELFPAY | LOC: DHSLP 12:31 | PROVIDERS: ATTENDING PHYSICIAN Internal Medicine; FAMILY PHYSICIAN Family Medicine | DX: G47.33 Obstructive sleep apnea (adult) (pediatric) (principal) | CPT/HCPCS: 95800 ==

== ENCOUNTER → 2025-03-04 12:38 | Outpatient (REF) | payer MEDICARE, OTHER, SELFPAY | LOC: SDSPAT 12:38 | PROVIDERS: ATTENDING PHYSICIAN Urology; FAMILY PHYSICIAN Family Medicine | DX: D41.20 Neoplasm of uncertain behavior of unspecified ureter (principal); N28.89 Other specified disorders of kidney and ureter; Z01.818 Encounter for other preprocedural examination | CPT/HCPCS: 36415; 93005 ==

== ENCOUNTER 2025-03-08 06:10 | Day surgery (SDC) | payer MEDICARE, OTHER, SELFPAY ==
[2025-03-04 13:46] VITALS: BMI 26.6
[2025-03-08] VITALS (9 sets, daily range): BP systolic 115–138; BP diastolic 80–92; BMI 26.6
[2025-03-08] MEDS: NORMOSOL-R/PLASMALYTE-A 1000 IV (13:33)
== END 2025-03-08 15:48 | disposition home or self-care (01) ==
LOC: SDS 06:10
PROVIDERS: ATTENDING PHYSICIAN Urology
DX: N28.89 Other specified disorders of kidney and ureter (principal)
CPT/HCPCS: 52332; 74420; 76000; A4300; C1894; C2617